=== PATIENT | female | born 1990 | race Caucasian/White ===

== ENCOUNTER 2016-06-22 22:04 | Emergency (ER) | payer MEDICAID ==
[2016-06-22 22:18] VITALS: TEMP 98.5
[2016-06-22] MEDS ORDERED: Sodium Chloride 0.9% 1,000 ML IV ONE (22:50)
[2016-06-22] MEDS ORDERED: Sodium Chloride 0.9% 1,000 ML ONE (23:13)
[2016-06-22 23:15] LABS: BASO % 0.5 % (0.0-2.0); EOS # 0.1 K/uL (0.0-0.7); LYMPH % 35.7 % (20.0-40.0); MEAN CELL VOLUME 90.4 fL (81.0-99.0); MEAN CORPUSCULAR HEMOGLOBIN 31.7 pg (27.0-31.0); MEAN PLATELET VOLUME 8.4 fL (7.2-11.7); MONO # 0.5 K/uL (0.0-0.8); RED CELL DISTRIBUTION WIDTH 12.7 % (11.5-14.5); WHITE BLOOD COUNT 8.3 K/uL (4.8-10.8)
[2016-06-22 23:35] LABS: RBC URINE 1 /hpf (0-3); URINE BILIRUBIN NEGATIVE (NEGATIVE); URINE BLOOD NEGATIVE (NEGATIVE); URINE COLOR Yellow (YELLOW); URINE GLUCOSE (UA) NORMAL (Normal); URINE KETONE NEGATIVE (NEGATIVE); URINE LEUKOCYTE ESTERASE TRACE Leu/uL (Negative); URINE PROTEIN NEGATIVE (NEGATIVE); URINE UROBILINOGEN NORMAL mg/dL (0.2-1.0); WBC URINE 19 /hpf (0-5)
[2016-06-22 23:36] LABS: CHLORIDE 98 mmol/L (98-107); POTASSIUM 3.8 mmol/L (3.6-5.2); SODIUM 139 mmol/L (132-148)
[2016-06-22 23:38] LABS: ALB/GLOB RATIO 1.3 (1.0-2.1); AST/SGOT 24 U/L (14-36); BILIRUBIN,TOTAL 0.7 mg/dL (0.2-1.3); CARBON DIOXIDE 25 mmol/L (22-30); GFR AFRICAN-AMERICAN > 60; TOTAL PROTEIN 7.5 g/dL (6.3-8.3)
[2016-06-22 23:39] LABS: ALKALINE PHOSPHATASE 62 U/L (38-126); ALT/SGPT 26 U/L (9-52); BLOOD UREA NITROGEN 8 mg/dL (7-17); CALCIUM 8.7 mg/dl (8.6-10.4); GLUCOSE,RANDOM 90 mg/dL (65-105)
[2016-06-23] MEDS ORDERED: Sodium Chloride 0.9% 500 ML IV ONE ×2 (00:28→00:31)
[2016-06-23 00:53] VITALS: BP 110/65; PULSE 68; RESP 18; O2SAT 98
--- NOTE | 2016-06-23 01:30 | C.PDOC ---
History Of Present Illness 25 year old female presents to the ER with complaints of burning epigastric pain, nausea, vomiting, and occasional diarrhea for the last 3 days. Patient reports the pain is constant and nonradiating. She denies ingestion of unusual foods. Patient denies chest pain, SOB, dysuria/hematuria, vaginal bleeding/ discharge. Time Seen by Provider: 06/22/16 22:44 Chief Complaint (Nursing): Abdominal Pain History Per: Patient History/Exam Limitations: no limitations Onset/Duration Of Symptoms: Days (3) Current Symptoms Are (Timing): Still Present Severity: Moderate Location Of Pain/Discomfort: Epigastric Radiation Of Pain To:: None Quality Of Discomfort: Burning Associated Symptoms: Nausea, Vomiting, Diarrhea (Occasional). denies: Chest Pain, Urinary Symptoms (Dysuria, hematuria, vaginal bleeding, or vaginal discharge.) Exacerbating Factors: None Alleviating Factors: None Past Medical History Reviewed: Historical Data, Nursing Documentation, Vital Signs Vital Signs: Last Vital Signs Temp 98.5 F 06/22/16 22:15 Pulse 68 06/23/16 00:53 Resp 18 06/23/16 00:53 BP 110/65 06/23/16 00:53 Pulse Ox 98 06/23/16 02:42 - Medical History PMH: No Chronic Diseases Surgical History: No Surg Hx Family History: States: No Known Family Hx - Social History Hx Alcohol Use: No Hx Substance Use: No - Immunization History Hx Tetanus Toxoid Vaccination: Yes Hx Influenza Vaccination: Yes Hx Pneumococcal Vaccination: No Review Of Systems Except As Marked, All Systems Reviewed And Found Negative. Constitutional: Negative for: Fever, Chills Cardiovascular: Negative for: Chest Pain, Palpitations Respiratory: Negative for: Cough, Shortness of Breath Gastrointestinal: Positive for: Nausea, Vomiting, Abdominal Pain (Epigastric), Diarrhea (Occasional) Genitourinary: Negative for: Dysuria, Hematuria, Vaginal Discharge, Vaginal Bleeding Physical Exam - Physical Exam Appears: Well, Non-toxic, Other (Mild discomfort) Skin: Normal Color, Warm, Dry, No Rash Head: Normacephalic Oral Mucosa: Moist Cardiovascular: Rhythm Regular Respiratory: Normal Breath Sounds, No Rales, No Rhonchi, No Wheezing Gastrointestinal/Abdominal: Soft, Tenderness (Mild, epigastric TTP), No Guarding , No Rebound, Other ((-) Hernandez's, (-) McBurney's) Back: Normal Inspection, No CVA Tenderness Neurological/Psych: Oriented x3 ED Course And Treatment - Laboratory Results Result Diagrams: 06/22/16 23:12 06/22/16 23:12 O2 Sat by Pulse Oximetry: 98 (Room air) Pulse Ox Interpretation: Normal Progress Note: Blood work, UA, UPreg ordered and reviewed. Patient given IV NS bolus, IV zofran, IV pepcid, IV morphine. 1:25am - On reassessment, patient is resting comfortably and states she feels better. On exam, abdomen is soft and nontender. Blood work and UA unremarkable. Patient given Rxs for zofran and protonix, and she was instructed to follow up with Gi within 1 week. She understands she should return to ED if symptoms worsen. Reevaluation Time: 00:25 Reassessment Condition: Improved (Patient reassessed, states she still feels some nause and epigastric burning. IV reglan and IV protonix ordered.) Disposition Counseled Patient/Family Regarding: Studies Performed, Diagnosis, Need For Followup, Rx Given - Disposition Referrals: Josue Carreon MD [Staff Provider] - [facility] [Outside] Disposition: HOME/ ROUTINE Disposition Time: 01:25 Condition: STABLE Additional Instructions: FOLLOW UP WITH GI WITHIN 1 WEEK DRINK PLENTY OF CLEAR FLUIDS RETURN TO ER IF SYMPTOMS WORSEN Prescriptions: Ondansetron [Zofran Odt] 4 mg PO Q8 PRN #10 odt PRN Reason: Nausea/Vomiting Pantoprazole [Protonix EC Tab] 20 mg PO DAILY #30 ect Instructions: Acute Nausea and Vomiting (ED), Epigastric Pain (ED) Print Language: AMERICAN - Clinical Impression Clinical Impression: Epigastric abdominal pain, Vomiting, Nausea - Scribe Statement The provider has reviewed the documentation as recorded by the Anaibfelisha Mccarty All medical record entries made by the Anaibfelisha were at my direction and personally dictated by me. I have reviewed the chart and agree that the record accurately reflects my personal performance of the history, physical exam, medical decision making, and the department course for this patient. I have also personally directed, reviewed, and agree with the discharge instructions and disposition.
== END 2016-06-23 01:36 | disposition home or self-care (01) ==
LOC: C.ER 22:04
DX: R10.13 Epigastric pain (principal); R11.2 Nausea with vomiting, unspecified
CPT/HCPCS: 80053; 81001; 83690; 84703; 85025; 96361; 96374; 96375; 99285; C9113; J2270; J2405; J2765; J7040